=== PATIENT | male | born 1975 | race Caucasian/White ===

== ENCOUNTER → 2020-01-11 | Outpatient (CLI) | payer BC ==
[~2020-01-11] VITALS: Ht 175 cm; Wt 143.0 kg
[~2020-01-11] MED LIST: CITA20TA9 PO; GLUC-116 PO; LOSA1TAB26 PO; OMEP20TA7 PO
== END ==
LOC: PREOP 01-10 05:34
PROVIDERS: ATTEND Surgery
DX: Z01.818 Encounter for other preprocedural examination (principal)

== ENCOUNTER 2020-01-17 06:59 | Day surgery (SDC) | payer BC ==
[~2020-01-17] VITALS: Ht 175 cm; Wt 143.0 kg
[~2020-01-17 06:59] MED LIST changes: +LACTATED RINGERS 1,000 ML IV ONE
[2020-01-17] MEDS ORDERED: LACTATED RINGERS 1,000 ML IV STA (07:00)
[2020-01-17 07:23] VITALS: BP 125/84
[2020-01-17] MEDS ORDERED: PROPOFOL INJECTION 50 ML IV ONE (07:41)
[2020-01-17] MEDS ORDERED: MIDAZOLAM 2 MG/2 ML (VERSED) VIAL ONE (07:43)
[2020-01-17 09:30] VITALS: BP 122/59
--- NOTE | 2020-01-17 09:34 | Progress Note-Post Operative ---
Post-Operative Progess Note Surgeon (s)/Generator Mechanic (s) Surgeon RANJIT LUNA DO Generator Mechanic: na Pre-Operative Diagnosis blood in stool Post-Operative Diagnosis ascending colon polyp Procedure & Operative Findings Date of Procedure 01/17/20 Procedure Performed/Findings colonoscopy c hot bx polypectomy Anesthesia Type per tool maintenance technician Estimated Blood Loss Estimated blood loss (mL): none Specimens/Packing Specimens Removed ascending colon RANJIT LUNA DO Jan 17, 2020 09:34
--- NOTE | 2020-01-17 09:35 | Discharge Inst-Simple/Standard ---
Discharge Inst-Standard Discharge Medications New, Converted or Re-Newed RX: RX on Chart Patient Instructions/Follow Up Plan of Care/Instructions/FU: Fer 3-4 weeks. Activity as Tolerated: Yes Discharge Diet: Regular Diet RANJIT LUNA DO Jan 17, 2020 09:35
[2020-01-17 10:00] VITALS: BP 146/71
[2020-01-17 10:10] VITALS: BP 146/71
--- NOTE | 2020-01-17 12:36 | OPERATIVE REPORT ---
DATE OF SERVICE: 01/17/2020 PREOPERATIVE DIAGNOSIS: Blood in stool. POSTOPERATIVE DIAGNOSIS: Ascending colon polyp. PROCEDURE: Colonoscopy with hot biopsy polypectomy. SURGEON: Ranjit Monroe DO ANESTHESIA: Per CHILD NUTRITION MANAGER. ESTIMATED BLOOD LOSS: None. COMPLICATIONS: None. INDICATIONS: The patient is a 44-year-old male with blood in stool. He understands risks and benefits of procedure and wished to proceed with procedure. Consent was signed in the chart. DESCRIPTION OF PROCEDURE: The patient was taken to the endoscopy suite, placed in left lateral recumbent position. Timeout was performed. Digital rectal exam was performed. There were no palpable polyps, masses or ulcerations. Scope was inserted in the rectum, advanced all the way to cecum with minimal difficulty. Prep was adequate. Scope was then slowly retracted back. There were no polyps, masses or ulcerations within the cecum and in the ascending colon, a very small polyp was present, which hot biopsy polypectomy was performed. Scope was then continuously retracted back. There were no other polyps, masses or ulcerations within the remainder of the transverse, descending and sigmoid colon. Once in the rectum, scope was retroflexed noting no other pathology. Scope was returned to its normal position, slowly withdrawn until completely removed. The patient tolerated procedure well without any complications, taken to recovery room in stable condition. RECOMMENDATIONS: The patient will need repeat colonoscopy in 5 years due to history of colon polyps. Any issues before that be seen at that time. The patient will follow up in the office in 3 to 4 weeks to discuss pathology results. Job ID: [id number] DocumentID: [id number] Dictated Date: 01/17/2020 09:37:54 Call Center Nurse Date: 01/17/2020 12:35:23 Dictated By: RANJIT MONROE DO
--- NOTE | 2020-01-19 16:29 | Anesthesia-General Post-Op ---
MAC Patient Condition Mental Status/LOC: Same as Preop Cardiovascular: Satisfactory Nausea/Vomiting: Absent Respiratory: Satisfactory Pain: Controlled Complications: Absent Post Op Complications Complications None Follow Up Care/Instructions Patient Instructions None needed. Anesthesiology Discharge Order Discharge Order Patient is doing well, no complaints, stable vital signs, no apparent adverse anesthesia problems. No complications reported per nursing. LYLE CHAO CRNA Jan 19, 2020 16:29
[2020-01-19] MEDS ORDERED: ONDANSETRON 4 MG/2 ML (SDV) Z0FRAN IVP PRN (17:00)
[2020-01-19] MEDS ORDERED: morphine INJ 10 MG/ML 1ML (SYR OR VIAL) IVP ONE (17:00)
[2020-01-19] MEDS ORDERED: fentaNYL INJECTION 100 MCG/2 ML AMP IVP ONE (17:00)
== END 2020-01-17 10:10 | disposition home or self-care (01) ==
LOC: ENDO 06:59
PROVIDERS: ATTEND Surgery
DX: D12.2 Benign neoplasm of ascending colon (principal); I10 Essential (primary) hypertension; K21.9 Gastro-esophageal reflux disease without esophagitis; G47.33 Obstructive sleep apnea (adult) (pediatric); E66.01 Morbid (severe) obesity due to excess calories; Z68.42 Body mass index [BMI] 45.0-49.9, adult; Z87.891 Personal history of nicotine dependence; Z79.899 Other long term (current) drug therapy

== ENCOUNTER → 2020-10-25 | Outpatient (CLI) | payer BC ==
[~2020-10-25] MED LIST changes: -LACTATED RINGERS 1,000 ML IV ONE
--- NOTE | 2020-10-25 09:55 | Diagnostic Imaging Report ---
Indication: Post COVID with continued shortness of breath. Time of exam: 8:59 AM Correlation is made with prior chest 01/10/2016. The heart size is normal. The pulmonary vascularity is unremarkable. The lungs are clear. No infiltrate, effusion or pneumothorax is detected. Impression: No acute cardiopulmonary process is detected. Dictated by: Dictated on workstation # [id number]
== END ==
LOC: RAD 08:45
PROVIDERS: ATTEND Physician Assistant
DX: R06.02 Shortness of breath (principal); Z86.16 Personal history of COVID-19
CPT/HCPCS: 71046